=== PATIENT | female | born 1985 | race Caucasian/White ===

== ENCOUNTER 2017-10-03 15:33 | Emergency (ER) | payer SELFPAY ==
[2017-10-03 16:46] LABS: ABS Basophils 0 10^3/ul (0-0.2); ABS Eosinophils 0 10^3/ul (0-0.6); ABS Monocytes 0.7 10^3/ul (0-0.8); ABS Nucleated RBC 0 10^3/ul; Eosinophil % 0.5 % (0-6); Hematocrit 39 % (35-47); Hemoglobin 13.5 g/dl (12.0-16.0); Lymphocyte % 23.2 % (25-47); Mean Corpuscular HGB Conc 34 g/dl (31-36); Mean Corpuscular Hemoglobin 31 pg (27-31); Mean Corpuscular Volume 91 fL (80-97); Mean Platelet Volume 8.3 um3 (7.4-10.4); Nucleated Red Blood Cells % 0.1; Platelet Count 316 10^3/ul (150-450); Red Blood Count 4.34 10^6/ul (4.00-5.40); Red Cell Distribution Width 12 % (10.5-15); White Blood Count 8.8 10^3/ul (3.5-10.8)
[2017-10-03 16:54] LABS: EGFR Non-African American 79.2 (>60)
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
[2017-10-03] MEDS: NS 0.9% 1000 ML* 2,000 ML IV ONE ×2 (17:48→18:53)
[2017-10-03] MEDS ORDERED: Ondansetron INJ* 2 MG/ML VIAL IV ONE (17:50)
[2017-10-03] MEDS ORDERED: Ondansetron INJ* 2 MG/ML VIAL ONE (17:52)
[2017-10-03] MEDS ORDERED: O ndansetron ODT 4MG 2TAB PRPK 4 MG PAK PO ONE (18:26)
[2017-10-03] MEDS ORDERED: Ketorolac INJ* 15 MG/ML 1 ML VIAL ONE (19:28)
[2017-10-03] MEDS ORDERED: Ketorolac INJ* 30 MG/ML 1 ML VIAL IV PUSH ONE ×2 (19:29→19:30)
[2017-10-03 20:12] VITALS: BP 110/75
== END 2017-10-03 20:11 | disposition home or self-care (01) ==
LOC: ED 15:33
DX: K52.9 Noninfective gastroenteritis and colitis, unspecified (principal)
CPT/HCPCS: 36415; 80053; 83605; 83690; 84702; 85025; 86140; 96361; 96374; 96375; 99283; J1885; J2405

== ENCOUNTER 2017-10-04 07:57 | Emergency (ER) | payer SELFPAY ==
[2017-10-04 08:11] VITALS: BP 116/82
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
== END 2017-10-04 08:35 | disposition home health service (06) ==
LOC: UCEAST 07:57
DX: R10.32 Left lower quadrant pain (principal); R10.31 Right lower quadrant pain
CPT/HCPCS: 99212; G0463

== ENCOUNTER 2017-10-04 08:51 | Emergency (ER) | payer SELFPAY ==
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
[2017-10-04 10:04] LABS: ABS Basophils 0 10^3/ul (0-0.2); ABS Eosinophils 0 10^3/ul (0-0.6); ABS Lymphocytes 1.6 10^3/ul (1.0-4.8); ABS Monocytes 0.4 10^3/ul (0-0.8); ABS Neutrophils 5.3 10^3/ul (1.5-7.7); ABS Nucleated RBC 0 10^3/ul; Eosinophil % 0.4 % (0-6); Hematocrit 37 % (35-47); Hemoglobin 12.8 g/dl (12.0-16.0); Lymphocyte % 22.1 % (25-47); Mean Corpuscular HGB Conc 34 g/dl (31-36); Mean Corpuscular Hemoglobin 31 pg (27-31); Mean Corpuscular Volume 90 fL (80-97); Mean Platelet Volume 8.3 um3 (7.4-10.4); Nucleated Red Blood Cells % 0.1; Platelet Count 268 10^3/ul (150-450); Red Blood Count 4.14 10^6/ul (4.00-5.40); Red Cell Distribution Width 12 % (10.5-15); White Blood Count 7.4 10^3/ul (3.5-10.8)
[2017-10-04] MEDS ORDERED: Iohexol 300* (CONTRAST) 10 ML SDV IV ONE (10:07)
[2017-10-04] MEDS ORDERED: Morphine VIAL* 10 MG/ML 1 ML VIAL IV ONE (10:15)
[2017-10-04] MEDS ORDERED: NS 0.9% 1000 ML* 1,000 ML IV ONE (10:16)
[2017-10-04] MEDS ORDERED: Ondansetron INJ* 2 MG/ML VIAL IV ONE (10:16)
--- NOTE | 2017-10-04 10:31 | RAD ---
CLINICAL HISTORY: abd. pain, hernia COMPARISON: None TECHNIQUE: Multiple contiguous axial CT scans were obtained of the abdomen and pelvis after the administration of intravenous contrast. Coronal and sagittal multiplanar reformations are submitted for review. Oral contrast was not administered. Delayed images were obtained through the abdomen. FINDINGS: LUNG BASES: The lung bases are clear. LIVER: The liver is diffusely low in attenuation compared to the spleen. There are no focal hepatic parenchymal masses. BILE DUCTS: There is no intrahepatic or extrahepatic biliary dilatation. GALLBLADDER: The gallbladder is incompletely distended but is grossly normal. PANCREAS: The pancreas is normal, without mass or ductal dilatation. SPLEEN: Normal in size and appearance. UPPER GI TRACT: Evaluation of the gastrointestinal tract is limited by incomplete gastric distention. The upper GI tract is unremarkable. SMALL BOWEL AND MESENTERY: The small bowel is normal in contour, course, and caliber. There is no obstruction or dilatation. COLON: The colon is normal in contour, course, caliber. There is no pericolonic inflammatory change. The appendix is not visualized. There is postsurgical change in the region of the cecum consistent with the history of previous appendectomy. ADRENALS: Normal bilaterally. KIDNEYS: The kidneys are normal in shape, size, contour, and axis. There is no hydronephrosis or nephrolithiasis. BLADDER: The bladder is smooth in contour. PELVIC ORGANS: The uterus and adnexa are grossly normal for technique. AORTA: The aorta is normal. IVC: Unremarkable LYMPH NODES: There is no lymphadenopathy by size criteria. ABDOMINAL WALL: There is a 2.7 x 1.1 x 2.1 cm soft tissue density along the anterior margin of the inferior extent of the right rectus abdominis muscle. This is contiguous with muscle and is isointense to the muscle. No inguinal hernias are noted. BONES AND SOFT TISSUES: As noted above, there is a soft tissue density of the anterior rectus abdominis muscle on the right. OTHER: None IMPRESSION: 1. THERE IS A 2.7 CM SOFT TISSUE DENSITY THAT IS CONTIGUOUS WITH THE INFERIOR EXTENT OF THE RIGHT RECTUS ABDOMINIS MUSCLE. THIS IS OF UNCLEAR ETIOLOGY. THIS MAY REPRESENT A HEMATOMA IN THE CORRECT CLINICAL SETTING. NEOPLASM IS WITHIN THE DIFFERENTIAL BUT IS CONSIDERED LESS LIKELY GIVEN THE CLINICAL HISTORY OF SUDDEN ONSET AND PAIN. IF THE CLINICAL PRESENTATION IS NOT CONSISTENT WITH HEMATOMA, RECOMMEND CONSIDERATION OF FURTHER EVALUATION WITH DIRECTED ULTRASOUND EXAMINATION OR CONTRAST-ENHANCED MRI OF THE AREA OF CONCERN. 2. FATTY INFILTRATION OF THE LIVER.
[2017-10-04 11:10] LABS: Urine Appearance Clear; Urine Blood 1+ (Negative); Urine Color Straw; Urine Ketones Negative (Negative); Urine Protein Negative (Negative); Urine Red Blood Cell 1+(3-5/hpf) (Absent); Urine Specific Gravity 1.025 (1.010-1.030); Urine Urobilinogen Negative (Negative); Urine White Blood Cell Trace(0-5/hpf) (Absent)
--- NOTE | 2017-10-04 12:48 | RAD ---
HISTORY: Painful palpable nodule overlying the right lower quadrant x2 days COMPARISONS: Same day CT of the abdomen and pelvis TECHNIQUE: Multiple transverse and longitudinal ultrasound images were obtained of the right upper quadrant. FINDINGS: Sonographic imaging of the superficial tissue overlying the right lower quadrant was acquired with the patient indicated the painful palpable lump existed. Corresponding to this location there is a heterogeneous and mostly avascular subcutaneous focus measuring 3.3 x 1.3 x 2.7 cm. There is no drainable fluid collection. IMPRESSION: NONSPECIFIC MINIMALLY VASCULAR SOLID SUBCUTANEOUS NODULE OVERLYING THE RIGHT LOWER QUADRANT CORRESPONDING TO THE PAINFUL PALPABLE LUMP INDICATED BY THE PATIENT.
[2017-10-04 14:15] VITALS: BP 0/0
--- NOTE | 2017-10-06 07:00 | PN ---
Progress Note - Progress Note Date of Service: 10/06/17 Note: urine culture grew Escherichia coli 50-75,000. Patient per note not having any signs UTI. Will not treat at this time as insignificant culture.
== END 2017-10-04 14:13 | disposition home or self-care (01) ==
LOC: ED 08:51
DX: R19.03 Right lower quadrant abdominal swelling, mass and lump (principal)
CPT/HCPCS: 36415; 74177; 76705; 80053; 81003; 81015; 84702; 85025; 87077; 87086; 87186; 96361; 96374; 96375; 99283; J2270; J2405; Q9967

== ENCOUNTER 2017-10-04 19:07 | Emergency (ER) | payer SELFPAY ==
[2017-10-04] MEDS ORDERED: HYDROcodone/ACETAMIN 5-325 MG* 1 TAB PO ONE ×2 (19:48)
[2017-10-04] MEDS ORDERED: Acetaminophen TAB* 325 MG PO ONE (19:49)
--- NOTE | 2017-10-04 19:49 | UC ---
Abdominal Pain Female HPI - HPI Summary HPI Summary: The patient is a 32 y/o F presenting to [facility] c/o RLQ abd pain that started this morning. She visited this morning and was advised to go to the ER for a small protrusion near her pelvic area. In the ER, she had a abd/pel CT, pelvic US, and bloodwork, but was sent home with dx of acute abd pain and no pain medications. She denies fever, vaginal discharge. - History of Current Complaint Stated Complaint: ABDOMINAL PAIN Time Seen by Provider: 10/04/17 19:40 Hx Obtained From: Patient Onset/Duration: Sudden Onset, Lasting Days, Still Present Timing: Constant Severity Initially: Moderate Severity Currently: Moderate Pain Scale Used: 0-10 Numeric Location: Discrete At: RLQ Radiates: No Character: Cramping Aggravating Factor(s): Nothing Alleviating Factor(s): Nothing Associated Signs and Symptoms: Negative: Fever, Vaginal Discharge Allergies/Adverse Reactions: Allergies Allergy/AdvReac Type Severity Reaction Status Date / Time No Known Allergies Allergy Verified 10/04/17 19:38 PMH/Surg Hx/FS Hx/Imm Hx Other Endocrine History: NEGATIVE: diabetes - Surgical History Surgical History: Yes Surgery Procedure, Year, and Place: Appendectomy, gangrene - Family History Known Family History: Positive: Cardiac Disease, Other - Cancer (unknown type), thrombosis - Social History Alcohol Use: Rare Substance Use Type: None Smoking Status (MU): Never Smoked Tobacco Review of Systems Constitutional: Other - NEGATIVE: fever Gastrointestinal: Abdominal Pain - RLQ Genitourinary: Other - NEGATIVE: vaginal discharge All Other Systems Reviewed And Are Negative: Yes Physical Exam - Summary Physical Exam Summary: VITAL SIGNS: Reviewed. GENERAL: Patient is a well-developed and nourished female who is lying comfortable in the stretcher. Patient is not in any acute respiratory distress. HEAD AND FACE: Normocephalic EYES: PERRLA, EOMI x 2. EARS: Hearing grossly intact. MOUTH: Oropharynx within normal limits. NECK: Supple, trachea is midline, no adenopathy, no JVD, no carotid bruit. CHEST: Symmetric, no tenderness at palpation LUNGS: Clear to auscultation bilaterally. No wheezing or crackles. CVS: Regular rate and rhythm, S1 and S2 present, no murmurs or gallops appreciated. ABDOMEN: Small protrusion in right lower abd near pelvic area that is tender to palpation. Bowel sounds are normal. No abdominal abnormal pulsations. EXTREMITIES: Full ROM in all major joints, no edema, no cyanosis or clubbing. NEURO: Alert and oriented x 3. No acute neurological deficits. Speech is normal and follows commands. SKIN: Dry and warm Triage Information Reviewed: Yes Vital Signs Reviewed: Yes Abd Pain Female Course/Dx - Course Course Of Treatment: Patient is a 32-year-old female who presents to the urgent care with a chief complaint of having right lower abdominal and right pelvic pain. Patient was seen in the morning at the urgent care, and she was sent to the emergency department for further workup and management. In the ED they have done abdominopelvic CT and ultrasound of the pelvis. Abdominal pelvic CT IMPRESSION: 1. THERE IS A 2.7 CM SOFT TISSUE DENSITY THAT IS CONTIGUOUS WITH THE INFERIOR EXTENT OF THE RIGHT RECTUS ABDOMINIS MUSCLE. THIS IS OF UNCLEAR ETIOLOGY. THIS MAY REPRESENT A HEMATOMA IN THE CORRECT CLINICAL SETTING. NEOPLASM IS WITHIN THE DIFFERENTIAL BUT IS CONSIDERED LESS LIKELY GIVEN THE CLINICAL HISTORY OF SUDDEN ONSET AND PAIN. IF THE CLINICAL PRESENTATION IS NOT CONSISTENT WITH HEMATOMA, RECOMMEND CONSIDERATION OF FURTHER EVALUATION WITH DIRECTED ULTRASOUND EXAMINATION OR CONTRAST-ENHANCED MRI OF THE AREA OF CONCERN. 2. FATTY INFILTRATION OF THE LIVER. Pelvic U/S IMPRESSION: NONSPECIFIC MINIMALLY VASCULAR SOLID SUBCUTANEOUS NODULE OVERLYING THE RIGHT LOWER QUADRANT CORRESPONDING TO THE PAINFUL PALPABLE LUMP INDICATED BY THE PATIENT. She has a hematoma versus an inflamed lymph node. I do not appreciate any infection in the lower extremities or in the pelvic area. Patient denies any vaginal discharge or vaginal bleeding. I offered the patient a pelvic exam, but patient declined. Because of the painful lymph node I would place the patient in antibiotics for 7 days. Patient will follow up with a [facility] in the next 2 days. Patient also was given a prescription for pain medications. I discussed the CT scan results and ultrasound results with the patient and the need to follow-up with the primary care physician and a [facility]. Patient understands and agrees with the plan. - Differential Dx/Diagnosis Provider Diagnoses: Lower abdominal pain. Lymphadenopathy. Hematoma. Discharge - Sign-Out/Discharge Documenting (check all that apply): Patient Departure - Patient will be discharged home. All imaging exams completed and their final reports reviewed: No Studies - Discharge Plan Condition: Stable Disposition: HOME Prescriptions: Ciprofloxacin TAB* [Cipro 500 MG TAB*] 500 mg PO BID #14 tab HYDROcodone/ACETAMIN 5-325 MG* [Woodruff 5-325 TAB*] 1 tab PO Q6H PRN #15 tab MDD 4 PRN Reason: Pain Patient Education Materials: Acute Abdominal Pain (ED), Hematoma (ED) Referrals: Care [facility] [Outside] [facility] [Outside] - 3 Days Additional Instructions: Follow up with your primary care provider in 2-3 days. Return to urgent care or the emergency department for any new or worsening symptoms. Take medications as instructed and adhere to plan Take Acetaminophen or ibuprofen for pain or fever Increase your fluid intake Return to the or go to the emergency department if symptoms worsen Follow-up with primary care physician in next 2-3 days - Billing Disposition and Condition Condition: STABLE Disposition: Home - Attestation Statements Document Initiated by Shae: Yes Documenting Scribe: Sandra Tilley Provider For Whom Shae is Documenting (Include Credential): Phillip Emmanuel MD Scribe Attestation: Sandra Sherwood scribed for Phillip Emmanuel MD on 10/06/17 at 0740. Scribe Documentation Reviewed: Yes Provider Attestation: The documentation as recorded by the Sandra kent accurately reflects the service I personally performed and the decisions made by me, Phillip Emmanuel MD
[2017-10-04 19:50] VITALS: BP 125/87
[2017-10-04] MEDS ORDERED: Ciprofloxacin TAB* 500 MG PO ONE (20:00)
--- NOTE | 2017-10-05 08:18 | UC ---
- Progress Note Progress Note: no imaging studies ordered this encounter Discharge - Sign-Out/Discharge Documenting (check all that apply): Post-Discharge Follow Up All imaging exams completed and their final reports reviewed: No Studies - Discharge Plan Condition: Stable Disposition: HOME Prescriptions: Ciprofloxacin TAB* [Cipro 500 MG TAB*] 500 mg PO BID #14 tab HYDROcodone/ACETAMIN 5-325 MG* [Stephenson 5-325 TAB*] 1 tab PO Q6H PRN #15 tab MDD 4 PRN Reason: Pain Patient Education Materials: Acute Abdominal Pain (ED), Hematoma (ED) Referrals: Care [facility] [Outside] [facility] [Outside] - 3 Days Additional Instructions: Follow up with your primary care provider in 2-3 days. Return to urgent care or the emergency department for any new or worsening symptoms. Take medications as instructed and adhere to plan Take Acetaminophen or ibuprofen for pain or fever Increase your fluid intake Return to the or go to the emergency department if symptoms worsen Follow-up with primary care physician in next 2-3 days - Billing Disposition and Condition Condition: STABLE Disposition: Home
== END 2017-10-04 20:10 | disposition home or self-care (01) ==
LOC: UCEAST 19:07
DX: R10.31 Right lower quadrant pain (principal); R59.1 Generalized enlarged lymph nodes; S30.1XXA Contusion of abdominal wall, initial encounter; X58.XXXA Exposure to other specified factors, initial encounter; Y93.9 Activity, unspecified; Y92.9 Unspecified place or not applicable
CPT/HCPCS: 99213; A9270-GY; G0463

== ENCOUNTER 2019-01-02 12:23 | Emergency (ER) | payer SELFPAY ==
[2019-01-02 12:34] VITALS: BP 130/90
== END 2019-01-02 14:33 | disposition left against medical advice (07) ==
LOC: ED 12:23
DX: R10.9 Unspecified abdominal pain (principal); Z53.21 Procedure and treatment not carried out due to patient leaving prior to being seen by health care provider

== ENCOUNTER 2019-01-02 14:20 | Emergency (ER) | payer SELFPAY ==
[2019-01-02 14:48] VITALS: BP 145/77
--- NOTE | 2019-01-02 15:07 | UC ---
Abdominal Pain Female HPI - HPI Summary HPI Summary: Ms. Gallagher presents complaining of 5 or 6 days of constipation. It's gotten gradually worse to the point where she wasn't able to sleep very well last evening. Last evening she used a stool softener and some MiraLAX admitted in the wee hours she used a mineral oil enema. None of that helped her. She is not nauseated and has been urinating normally. She does have a history of constipation but this worst episode. - History of Current Complaint Chief Complaint: UCGI Stated Complaint: STOMACH PAIN Time Seen by Provider: 01/02/19 14:53 Hx Obtained From: Patient Hx Last Menstrual Period: 2 weeks ago Onset/Duration: Gradual Onset, Lasting Days Timing: Constant Severity Initially: Mild Severity Currently: Moderate Pain Intensity: 8 Location: Suprapubic Radiates: No Character: Cramping, Sharp Aggravating Factor(s): Nothing Alleviating Factor(s): Nothing - 2 Associated Signs and Symptoms: Positive: Constipation Allergies/Adverse Reactions: Allergies Allergy/AdvReac Type Severity Reaction Status Date / Time No Known Allergies Allergy Verified 01/02/19 14:43 Home Medications: Home Medications Container,Empty [Enema Bottle] 1 mis XX 01/02/19 [History] Docusate Sodium [Stool Softener] 100 mg PO Q12H PRN 01/02/19 [History Confirmed 01/02/19] PMH/Surg Hx/FS Hx/Imm Hx Previously Healthy: Yes - Surgical History Surgical History: Yes Surgery Procedure, Year, and Place: Appendectomy, gangrene. R ankle surgery - Family History Known Family History: Positive: Cardiac Disease, Other - Cancer (unknown type), thrombosis - Social History Alcohol Use: Rare Substance Use Type: None Smoking Status (MU): Never Smoked Tobacco Review of Systems All Other Systems Reviewed And Are Negative: Yes Gastrointestinal: Positive: Abdominal Pain Physical Exam - Summary Physical Exam Summary: She is nontoxic in appearance with stable vitals. Triage Information Reviewed: Yes Appearance: Pain Distress - Mild Vital Signs: Initial Vital Signs Temp 98.9 F 01/02/19 14:44 Pulse 106 01/02/19 14:44 Resp 18 01/02/19 14:44 BP 145/77 01/02/19 14:44 Pulse Ox 99 01/02/19 14:44 Vital Signs Reviewed: Yes Cardiovascular: Positive: Tachycardia - Mild Abdomen Description: Positive: Other: - Some [id number] tenderness or suprapubic. There is no rebound or guarding or tenderness anywhere else. Diagnostics - Radiology KUB Radiology Interpretation Completed By: Radiologist Summary of Radiographic Findings: Stool Abd Pain Female Course/Dx - Course Course Of Treatment: KUB confirms a is indeed constipated and this is likely the source of her symptoms. I recommended that she continue the enema to try to loosen it up and I am giving her mag citrate. - Differential Dx/Diagnosis Provider Diagnosis: Constipation Discharge ED - Sign-Out/Discharge Documenting (check all that apply): Patient Departure All imaging exams completed and their final reports reviewed: Yes - Discharge Plan Condition: Stable Disposition: HOME Patient Education Materials: Constipation (ED) Referrals: No Primary Care PhysNOPCP [Primary Care Provider] - Care [facility] [Outside] - Billing Disposition and Condition Condition: STABLE Disposition: Home
== END 2019-01-02 15:47 | disposition home or self-care (01) ==
LOC: UCEAST 14:20
DX: K59.00 Constipation, unspecified (principal); R00.0 Tachycardia, unspecified; R10.9 Unspecified abdominal pain
CPT/HCPCS: 74018; 99212; G0463